=== PATIENT | male | born 1970 | race African-American/Black ===

== ENCOUNTER 2024-11-18 02:50 | Emergency (ER) | payer OTHER | END 2024-11-18 02:59 | disposition left against medical advice (07) | LOC: ER 02:50 | DX: I10 Essential (primary) hypertension (principal); Z53.21 Procedure and treatment not carried out due to patient leaving prior to being seen by health care provider ==

== ENCOUNTER 2024-11-18 03:39 | Emergency (ER) | payer OTHER ==
[~2024-11-18] VITALS: Ht 190.5 cm; Wt 140.9 kg
[2024-11-18 03:52] VITALS: O2SAT 99
[2024-11-18 04:21] LABS: BASOPHILS % 0.9 % (0.0-2.0); EOSINOPHILS % 1.1 % (0.0-5.0); HEMOGLOBIN. 14.7 g/dL (14.0-18.0); LYMPHOCYTES % 24.9 % (20.0-50.0); MEAN CORPUSCULAR HEMOGLOBIN 27.5 pg (28.0-32.0); MEAN CORPUSCULAR HGB CONC 33.3 g/dL (31.0-37.0); MEAN CORPUSCULAR VOLUME 82.4 fL (80.0-94.0); MEAN PLATELET VOLUME 8.5 fl (7.4-10.4); MONOCYTES % 4.8 % (2.0-8.0); NEUTROPHILS % 68.3 % (40.0-76.0); PLATELET 245 x1000/uL (130-400); RED BLOOD CELL COUNT 5.34 mill/uL (4.7-6.1); RED CELL DISTRIBUTION WIDTH 16.2 % (11.6-14.6); WHITE BLOOD COUNT 9.8 x1000/uL (4.5-11.0)
[2024-11-18 04:28] LABS: CHLORIDE 108 mEq/L (98-107); POTASSIUM 3.9 mEq/L (3.5-5.1); SODIUM 140 mEq/L (136-145)
[2024-11-18 04:29] LABS: CARBON DIOXIDE 27 mEq/L (21-32)
[2024-11-18 04:30] LABS: CALCIUM 9.8 mg/dL (8.7-10.4)
[2024-11-18 04:35] LABS: CREATININE 1.2 mg/dL (0.6-1.3); GLUCOSE 106 mg/dL (70-105); UREA NITROGEN BLOOD 13 mg/dL (9-23)
[2024-11-18 04:36] LABS: CLARITY URINE CLEAR (CLEAR); COLOR URINE YELLOW (YELLOW); GLUCOSE URINE NEGATIVE (NEGATIVE); KETONES URINE NEGATIVE (NEGATIVE); LEUKOCYTE ESTERASE URINE NEGATIVE (NEGATIVE); NITRITE URINE NEGATIVE (NEGATIVE); OCCULT BLOOD URINE NEGATIVE (NEGATIVE); PROTEIN URINE 1+ (NEGATIVE); SPECIFIC GRAVITY URINE 1.016 (1.005-1.030); UROBILINOGEN URINE 0.2 E.U./dL (0.2-1.0)
[2024-11-18 04:36] LABS: TROPONIN I HIGH SENSITIVITY 4 ng/L (3.0-53)
[2024-11-18 05:05] LABS: RBC URINE 0-2 /hpf (0-2); SQUAMOUS EPITHELIAL CELL URINE NONE SEEN /lpf (RARE/1+); WBC URINE 0-2 /hpf (0-2)
[2024-11-18 05:06] LABS: BACTERIA URINE NONE SEEN
[2024-11-18 06:38] VITALS: BP 106/70; PULSE 65; RESP 18; TEMP 36.6; O2SAT 97
== END 2024-11-18 07:19 | disposition home or self-care (01) ==
LOC: ER 03:39
DX: I10 Essential (primary) hypertension (principal); E78.00 Pure hypercholesterolemia, unspecified; Z88.0 Allergy status to penicillin; Z98.890 Other specified postprocedural states
CPT/HCPCS: 36415; 80048; 81003; 84484; 85025; 93005; 99284